=== PATIENT | female | born 1945 | race Caucasian/White ===

== ENCOUNTER 2016-06-11 09:18 | Inpatient (IN) | payer OTHER, BC ==
[2016-06-08 12:30] LABS: BASOPHIL % 0.6 % (0-2); PLATELET COUNT 285 x10^3mcL (130-400); RED CELL DISTRIBUTION WIDTH 14.2 % (11.5-14.5)
[2016-06-08 15:08] LABS: ALBUMIN 4.4 g/dL (3.4-5.0); ALKALINE PHOSPHATASE 55 U/L (46-116); ALT/SGPT 31 U/L (14-59); AST/SGOT 28 U/L (15-37); BILIRUBIN TOTAL 1.58 mg/dL (0.20-1.00); CALCIUM 9.7 mg/dL (8.5-10.1); CARBON DIOXIDE 31.5 mmol/L (21-32); CHLORIDE SERUM 102 mmol/L (98-107); CREATININE SERUM 0.8 mg/dL (0.6-1.0); GFR1 > 60 mL/min; GLUCOSE SERUM 112 mg/dL (74-106); LACTIC DEHYDROGENASE (LDH) 170 U/L (100-190); PHOSPHOROUS 3.3 mg/dL (2.5-4.9); POTASSIUM SERUM 4.6 mmol/L (3.5-5.1); SODIUM SERUM 142 mmol/L (136-145); TOTAL PROTEIN, SERUM 7.6 g/dL (6.4-8.2); URIC ACID 4.1 mg/dL (2.6-6.0)
[2016-06-08 15:10] LABS: CHOLESTEROL 235 mg/dL (<200)
[~2016-06-11] VITALS: Ht 157.5 cm; Wt 91.2 kg
[2016-06-11 09:54] VITALS: BP 189/81
[2016-06-11 14:00] VITALS: BP 148/89
[2016-06-11 14:24] VITALS: BP 148/89
[2016-06-11 14:44] LABS: ALBUMIN 3.6 g/dL (3.4-5.0); ALKALINE PHOSPHATASE 48 U/L (46-116); ALT/SGPT 53 U/L (14-59); AMYLASE 30 U/L (25-115); AST/SGOT 68 U/L (15-37); BILIRUBIN TOTAL 0.9 mg/dL (0.20-1.00); CALCIUM 8.9 mg/dL (8.5-10.1); CARBON DIOXIDE 29.8 mmol/L (21-32); CHLORIDE SERUM 104 mmol/L (98-107); CHOLESTEROL 180 mg/dL (<200); CREATININE SERUM 0.8 mg/dL (0.6-1.0); GFR1 > 60 mL/min; GLUCOSE SERUM 117 mg/dL (74-106); LIPASE 178 IU/L (73-393); POTASSIUM SERUM 3.5 mmol/L (3.5-5.1); SODIUM SERUM 141 mmol/L (136-145); TOTAL PROTEIN, SERUM 6.3 g/dL (6.4-8.2); TRIGLYCERIDES 42 mg/dL (<150)
[2016-06-11 14:45] LABS: CHOLESTEROL/HDL RATIO 1.8; HDL CHOLESTEROL 98 mg/dL (40-60)
--- NOTE | 2016-06-11 14:49 | NUR ---
AT 1345 - RECEIVED PATIENT FROM OR NURSE VIA BED. SETTLED IN ROOM, ORIENTED TO SURROUNDINGS AND PLACED ON CARDIAC MONITORING TELE # 4. PATIENT IS POST VENTRAL HERNIA REPAIR TODAY, UNDER GENERAL ANAESTHESIA. PATIENT IS AWAKE, ALERT AND ORIENTED X 4. C/O ABDOMINAL PAIN. DRESSING TO SUGICAL INCISION ON ABDOMEN IS DRY AND INTACT. TUYET DRAIN PATENT WITH BRIGHT SEROSANGUINOUS DRAINAGE IN BULB. AT 1350 - SPOKE WITH DR CHEN AND THEN DR DANIELS FOR POST-OP ORDERS. AT 1400 - HISTORY OBTAINED FROM PATIENT. AT 1410 - MEDICATED WITH IV MORPHINE FOR PAIN PER EMAR. COMMENCED IV FLUID OF NS AT 100ML/HR. PATIENT GIVEN WATER PO AT THIS TIME. CALL LIGHT WITHIN REACH.
[2016-06-11 14:51] LABS: FREE T4 1.17 ng/dL (0.76-1.46); FREE THYROXINE INDEX 2.5 ug/dL (1.4-4.5); T3 TOTAL 0.96 ng/mL; T4(THYROXINE) 6.2 ug/dL (4.7-13.3)
[2016-06-11] MEDS ORDERED: VALIUM2 MG PO (15:03)
[2016-06-11] MEDS ORDERED: HYDROCHLOROTHIA25 MG PO (15:03)
[2016-06-11] MEDS ORDERED: LOVASTATIN20 MG PO (15:03)
[2016-06-11] MEDS ORDERED: LOSARTAN POTAS100 M1 PO (15:04)
[2016-06-11 15:44] LABS: BASOPHIL % 1.3 % (0-2); PLATELET COUNT 242 x10^3mcL (130-400)
--- NOTE | 2016-06-11 16:13 | NUR ---
AT 1500 - PATIENT PROVIDED WITH MEDIUM SIZE ABDOMINAL BINDER; THE SMALL BINDER PATIENT HAD ON RETURN FROM SURGERY WAS TOO SMALL- NOT ABLE TO OVERLAP. TUYET DRAIN EMPTIED OF 60ML BRIGHT SEROSANGUINOUS FLUID. AT 1610 - PATIENT REPROTS THAT ABDOMINAL PAIN IS STIL PRESENT. NOW GIVEN NORCO PER EMAR. DR DANIELS AT BEDSIDE.
[2016-06-11 16:57] LABS: microscopic required? YES; urine erythrocyte NEGATIVE (NEGATIVE)
--- NOTE | 2016-06-11 18:11 | NUR ---
AT 1630 - PATIENT AMBULATED TO BATHROOM. VOIDED POST-OP. URINE COLLECTED AND TAKEN TO LAB FOR UA. AT 1750 - TOLERATING CLEAR LIQUID DIET. NOW MEDICATED WITH IV MORPHINE PER EMAR. PATIENT REPORTS THAT PAIN IS MODERATLY UNDER CONTROL AT THIS TIME.
[2016-06-11 18:35] VITALS: BP 146/75
--- NOTE | 2016-06-11 20:00 | NUR ---
PT A/A/O X4. DENIES DIZZINESS AND HEADACHE. BREATH SOUNDS CLEAR. BREATHING EVEN AND UNLABORED ON ROOM AIR. DENIES CHEST PAIN AND PRESSURE. BOWEL SOUNDS ACTIVE. NO C/O N/V AND C/O ABD PAIN. DENIES NEED FOR PAIN MEDS THUS FAR. ABD WITH DRESSING AND ABD BINDER C/D/I. TUYET DRAIN NOTED WITH SANGUINOUS FLUIDS. IV INTACT ON THE RAC INFUSING WITH NS AT 50 ML/HR. MADE PT COMFORTABLE. PLACED CALL LIGHT WITH IN REACH. WILL CONTINUE TO MONITOR.
--- NOTE | 2016-06-11 20:48 | NUR ---
PT C/O ABD PAIN. GAVE PT NORCO PO. PT TOLERATED IT WELL. WILL CONTINUE TO MONITOR.
[2016-06-11 21:46] VITALS: BP 161/68
--- NOTE | 2016-06-11 23:09 | NUR ---
PT C/P ABD PAIN. GAVE PT MORPHINE IVP. PT TOLERATED IT WELL. WILL CONTINUE TO MONITOR.
--- NOTE | 2016-06-12 05:50 | NUR ---
PT QUIET AND RESTING. NO C/O PAIN THUS FAR. DRESSING WITH ABD BINDER ON ABD C/D/I. WITH TUYET DRAIN. IV INTACT AND INFUSING ORDERED. MADE PT COMFORTABLE. WILL ENDORSE TO THE AM NURSE ACCORDINGLY.
[2016-06-12 06:18] LABS: BASOPHIL % 0.2 % (0-2); PLATELET COUNT 234 x10^3mcL (130-400); RED CELL DISTRIBUTION WIDTH 14.1 % (11.5-14.5)
[2016-06-12 06:29] LABS: CALCIUM 8.9 mg/dL (8.5-10.1); CARBON DIOXIDE 29.5 mmol/L (21-32); CHLORIDE SERUM 105 mmol/L (98-107); CREATININE SERUM 0.8 mg/dL (0.6-1.0); GFR1 > 60 mL/min; GLUCOSE SERUM 117 mg/dL (74-106); MAGNESIUM 1.7 mg/dL (1.8-2.4); PHOSPHOROUS 3.5 mg/dL (2.5-4.9); POTASSIUM SERUM 3.7 mmol/L (3.5-5.1); SODIUM SERUM 140 mmol/L (136-145)
[2016-06-12 06:46] VITALS: BP 152/70
--- NOTE | 2016-06-12 07:30 | NUR ---
RECEIVED PT LAYING IN BED AWAKE AND ALERT/ORIENTED x4; ALLERGY BAND AND ID BAND ON AND VERIFIED; 20G IV SITE PATENT AND INFUSING WELL; IV TUBING LABELLED; INFORMATION BOARD UPDATED CLEARLY; PT STATES THAT SHE IS HAVING PAIN 4/10 CURRENTLY BUT STATES SHE CAN HAVE HER PRN AT THE SAME TIME HER MORNING MEDS. PLEASANT AND COOPERATIVE. CALL LIGHT WITHIN REACH. ENCOURAGED TO CALL FOR ASSISTANCE WHEN NEEDED. WILL CONTINUE TO MONITOR
--- NOTE | 2016-06-12 08:30 | NUR ---
AM ROUNDS COMPLETED; PER DR. GARSIA, ENCOURAGED PT TO AMBULATE TOLERATED, USING PO PRN PAIN MEDS FOR PAIN CONTROL OPPOSE TO IV PRN; IF ALL GOES WELL PT WILL POTENITALLY DISCHARGE TOMORROW. PT APPEARED RECEPTIVE AND AGREED TO PLAN OF CARE. WILL CONTINUE TO MONITOR
[2016-06-12 09:00] VITALS: BP 156/75
[2016-06-12 13:05] VITALS: BP 142/59
--- NOTE | 2016-06-12 13:52 | NUR ---
PT ON FULL LIQUID DIET, RECEIVED CLAM CHOWDER FOR LUNCH ALTHOUGH SHE IS ALLERGIC TO SHELLFISH. SHE THOUGHT IT WAS CREAM OF MUSHROOM SOUP SO SHE HAD APPROXIMATELY 3 SPOON FULLS BEFORE REALIZING IT WAS NOT SO. VSS. NO SIGNS OF DISTRESS. PT STATES THAT SHE FEELS OK. DR DANIELS WAS CALLED AND IS AWARE. ENSURED CHART WAS UPDATED TO REFLECT ON DIETARY'S END. CALL LIGHT WITHIN REACH. WILL CONTINUE TO MONITOR FOR SAFETY
--- NOTE | 2016-06-12 14:36 | NUR ---
PT STATES THAT SHE IS HAVING ABD PAIN 7/10. GIVEN PRN PO NORCO. WILL CONTINUE TO MONITOR
[2016-06-12 16:23] VITALS: BP 141/65
--- NOTE | 2016-06-12 17:45 | NUR ---
PT C/O ITCHING ALL OVER. DR. DANIELS NOTIFIED. GIVEN BENADRYL IVP. WILL CONTINUE TO MONITOR
--- NOTE | 2016-06-12 19:30 | NUR ---
PT IS ALERT AND ORIENTED. PLEASANT AND COOPERATIVE. DEAF RIGHT EAR. CLEAR LUNG SOUNDS ON AUCULTATIONS BILATERALLY UPPER AND LOWER BASES. AMBULATORY. BOWEL SOUNDS ACTIVE AND PRESENT. STILL HAS IV NS AT 50 ML PER HOUR INFUSING WELL IN THE LEFT FOREARM. PATENT AND INTACT. STILL GETTING ROCEPHIN IVPB DAILY. MEDSURG. ABDOMINAL INCISION COVERED WITH DRY CLEAN DRESSING AND ABDOMINAL BINDER INTACT. WITH LEXIE HANNAH DRAINING SEROUSANGINOUS DRAINAGE. S/P VENTRAL HERNIA REPAIR 06/11. PT AMBULATING THE HALLWAY GOOD. WILL MONITOR.
--- NOTE | 2016-06-12 19:40 | NUR ---
PT C/O ABDOMINAL PAIN S/P VENTRAL HERNIA REPAIR 09/28. MEDICATED WITH NORCO 1 TAB PO. WILL MONITOR.
[2016-06-12 20:35] VITALS: BP 150/59
--- NOTE | 2016-06-13 05:15 | NUR ---
PT IS RESTING. OCCASIONAL COUGHING. MEDICATED WITH ROBITUSSIN WITH CODEINE. STILL HAS IV NS AT 50 ML PER HOUR INFUSING WELL. HAD NORCO AT AROUND 1AM. WILL MONITOR.
--- NOTE | 2016-06-13 05:24 | NUR ---
PT IS RESTING. HAD GIVEN NORCO AT AROUND 1AM. STILL HAS IV NS AT 50 ML PER HOUR INFUSING WELL IN THE LEFT FOREARM. RECEIVING ROCEPHIN IVPB DAILY. WILL MONITOR.
[2016-06-13 06:02] VITALS: BP 146/69
--- NOTE | 2016-06-13 06:18 | NUR ---
PT C/O MODERATE ABDOMINAL PAIN 08/29. MEDICATED WITH NORCO 1 TAB PO. WILL MONITOR.
[2016-06-13 06:19] LABS: BASOPHIL % 0.3 % (0-2); PLATELET COUNT 203 x10^3mcL (130-400); RED CELL DISTRIBUTION WIDTH 14.1 % (11.5-14.5)
--- NOTE | 2016-06-13 06:20 | NUR ---
PT LEXIE HANNAH DRAINAGE EMPTIED 25 ML. WILL MONITOR.
[2016-06-13 06:41] LABS: CALCIUM 8.4 mg/dL (8.5-10.1); CARBON DIOXIDE 30.3 mmol/L (21-32); CHLORIDE SERUM 105 mmol/L (98-107); CREATININE SERUM 0.8 mg/dL (0.6-1.0); GFR1 > 60 mL/min; GLUCOSE SERUM 97 mg/dL (74-106); MAGNESIUM 1.6 mg/dL (1.8-2.4); PHOSPHOROUS 3.9 mg/dL (2.5-4.9); POTASSIUM SERUM 3.9 mmol/L (3.5-5.1); SODIUM SERUM 142 mmol/L (136-145)
--- NOTE | 2016-06-13 07:10 | NUR ---
RECIEVED REPORT FROM ROSALIO KINGSLEY RN AT BEDSIDE. PT IS AOX4, ABLE TO FOLLOW VERBAL COMMANDS. NO SIGNS OF FACIAL DROOP OR SLURRED SPEECH. FOUND PT ON RA, NO SIGNS OF SOB OR ACUTE DISTRESS NOTED. PT IS ABLE TO CORRECTLY DEMOSTRATE USAGE OF IS AT BEDSIDE. BS ACITVE X4, PT DENIES PASSING GAS OR BM POST OP. ABD DRESSING CDI WITH ABD BINDER OVER DRESSING. SUCTION IS PRESENT ON TUYET DRAIN, OUTPUT CLEAR RED FLUIDS. PT DENIES ANY PAIN AT THIS TIME. NS INFUSIN AT 50 ML/HR TO LFA. IV SITE WNL. BED AT LOW AND CALL LIGHT WITHIN REACH.
--- NOTE | 2016-06-13 07:23 | NUR ---
REPORT GIVEN TO [facility] WHO WILL TAKE CARE OF PT TODAY. BEDSIDE REPORT GIVEN.
--- NOTE | 2016-06-13 08:30 | NUR ---
DR. CAMARENA IS AT BEDSIDE DISCUSS PLAN OF CARE.
[2016-06-13 09:11] VITALS: BP 133/68
--- NOTE | 2016-06-13 09:30 | NUR ---
[place] DR. DANIELS MAG 1.6. AWAITING FOR ORDERS.
--- NOTE | 2016-06-13 10:15 | NUR ---
PT C/O ABD PAIN 08/29 WILL MEDICATE PER EMAR.
[2016-06-13 12:41] VITALS: BP 147/64
--- NOTE | 2016-06-13 15:03 | NUR ---
PT REQUESTED TO BE PREMEDICATED FOR AMBULATIONS. WILL MEDICATE PER EMAR. NO SIGNS OF DISTRESS OR SOB NOTED AT THIS TIME.
[2016-06-13 17:28] VITALS: BP 132/57
--- NOTE | 2016-06-13 18:07 | NUR ---
PT AMBULATING AROUND UNIT AT THIS TIME WITH NON SKID YELLOW SOCKS WITH STEADY GAIT. PT STATES PAIN IS TOLERABLE WHEN AMBULATING AND DOES NOT C/O PAIN WHEN RESTING IN BED. PT DENIES N/V AT THIS TIME. ABD DRESSING IS CDI, TUYET DRAIN HAS OUPTUF OF CLEAR RED FLUIDS, NO SIGNS OF CLOTS. TOTAL OF 5ML OF OUTPUT FROM TUYET DRAIN. NS INFUSING AT 50 ML/HR TO LFA. IV SITE WNL. WILL ENDORSE ALL CARE TO ONCOMING RN. BED AT LOW AND CALL LIGHT WITHIN REACH.
--- NOTE | 2016-06-13 19:19 | NUR ---
PT IS ALERT AND ORIENTED X4. PLEASANT AND COOPERATIVE. DEAF LEFT EAR. CLEAR LUNG SOUNDS ON AUSCULTATIONS BILATERALLY BOTH BASES.WITH IS WHILE AWAKE. ROOM AIR. 02SAT 96%. AMBULATORY. STILL HAS IV NS AT 50 ML PER HOUR INFUSING WELL LEFT FOREARM. PATENT AND INTACT. STILL GETTING ROCEPHIN DAILY. STILL HAS ABDOMINAL DRESSING INTACT WITH ABDOMINAL BINDER AND TUYET DRAIN. WITH SEROUSANGINOUS DRAINAGE. MADE COMFORTABLE IN BED. CALL LIGHT WITHIN EASY REACH.
--- NOTE | 2016-06-13 20:04 | NUR ---
PT C/O ABDOMINAL POST OP PAIN 09/28. MEDICATED WITH NORCO 1 TAB PO. WILL MONITOR.
[2016-06-13 20:38] VITALS: BP 154/74
--- NOTE | 2016-06-14 00:31 | NUR ---
PT C/O 09/28 ABDOMINAL POST OP PAIN. MEDICATED WITH NORCO 1 TAB PO. WILL MONITOR.
--- NOTE | 2016-06-14 04:37 | NUR ---
PT C/O ABDOMINAL POST OP PAIN 09/28. MEDICATED WITH NORCO 1 TAB PO. WILL MONITOR.
--- NOTE | 2016-06-14 05:38 | NUR ---
PT IS RESTING. HAD 3X NORCO FOR MANAGEMENT OF ABDOMINAL POST OP PAIN. STILL HAS IV NS AT 50 ML PER HOUR INFUSING WELL. MADE COMFORTABLE IN BED. CALL LIGHT WITHIN EASY REACH. AMBULATORY AND PASSING GAS ALREADY. WILL MONITOR.STILL GETTING ROCEPHINE DAILY FOR UTI+. WITHOUT ADVERSE REACTION NOTED. WILL MONITOR.
[2016-06-14 05:41] VITALS: BP 132/61
[2016-06-14 06:17] LABS: CALCIUM 8.6 mg/dL (8.5-10.1); CARBON DIOXIDE 30.6 mmol/L (21-32); CHLORIDE SERUM 105 mmol/L (98-107); CREATININE SERUM 0.7 mg/dL (0.6-1.0); GFR1 > 60 mL/min; GLUCOSE SERUM 92 mg/dL (74-106); MAGNESIUM 1.5 mg/dL (1.8-2.4); POTASSIUM SERUM 3.8 mmol/L (3.5-5.1); SODIUM SERUM 142 mmol/L (136-145)
[2016-06-14 06:37] LABS: BASOPHIL % 0.5 % (0-2); PLATELET COUNT 199 x10^3mcL (130-400); RED CELL DISTRIBUTION WIDTH 13.6 % (11.5-14.5)
--- NOTE | 2016-06-14 07:20 | NUR ---
RECIEVED REPORT FROM ROSALIO KINGSLEY RN AT BEDSIDE. PT IS AAOX4 ABLE TO FOLLOW COMMANDS. PT DENIES CHEST PAIN AT THIS TIME. ABD DRESSING CDI WITH ABD BINDER OVER DRESSING. SUCTION IS PRESENT IN TUYET DRAIN, OUTPUTTING CLEAR RED FLUIDS. PT IS CALM AT THIS TIME. BED AT LOW AND CALL LIGHT WITHIN REACH.
[2016-06-14 08:48] VITALS: BP 153/64
--- NOTE | 2016-06-14 08:50 | NUR ---
PT REQUEST TO BE PREMEDICATE FOR PAIN /10 TO AMBULATE HALLWAY. WILL MEDICATE PER EMAR.
[2016-06-14] MEDS ORDERED: NOR10T PO (09:38)
[2016-06-14] MEDS ORDERED: COL100 PO (09:39)
[2016-06-14 11:43] VITALS: BP 153/64
--- NOTE | 2016-06-14 14:30 | NUR ---
INSTRUCT PT TO FOLLOW UP WITH DR. SANTORO FOR REMOVAL OF TUYET DRAIN. EDUCATED AND DEMOSTRATED TO PT TO HOW TO DRAIN TUYET DRAIN PROPERLY. PT VERBALIZED UNDERSTANDING OF DRAINING TUYET. PT STATES," THE DRAIN IS COMPRESSED FOR SUCTION AND I WILL KEEP TRACT OF OUTPUT". PT IS D/C BACK TO HOME WITH RONI. ABD DRESSING IS CDI. PT DENIES ABD PAIN OR ANY DISCOMFORT AT THIS TIME.
== END 2016-06-14 14:43 | disposition home or self-care (01) | DRG 353 ==
LOC: DS 09:18 → OR 11:00 → DS 11:00 → DU 13:41 → DS 13:56 → MU 13:56
PROVIDERS: Family Medicine; Surgery; ADMIT Family Medicine
PROC: 0WUF0JZ Supplement Abdominal Wall with Synthetic Substitute, Open Approach (ICD-10-PCS; principal; 2016-06-11 11:00)
DX: K43.9 Ventral hernia without obstruction or gangrene (principal); I50.41 Acute combined systolic (congestive) and diastolic (congestive) heart failure; N39.0 Urinary tract infection, site not specified; I10 Essential (primary) hypertension; E78.5 Hyperlipidemia, unspecified; M19.90 Unspecified osteoarthritis, unspecified site; E83.42 Hypomagnesemia; F41.9 Anxiety disorder, unspecified; D53.9 Nutritional anemia, unspecified; E66.8 Other obesity; Z68.36 Body mass index [BMI] 36.0-36.9, adult
CPT/HCPCS: 83880; 84439; C1781; J0330; J0690; J0696; J1170; J1200; J2175; J2250; J2270; J2405; J2704; J2710; J3010; J3475; J3490; J7030; J7120; Q0163